=== PATIENT | female | born 2000 | race Caucasian/White ===

== ENCOUNTER 2020-09-20 17:16 | Emergency (ER) | payer BC, SELFPAY ==
[2020-09-20 17:19] VITALS: BP 132/89; PULSE 72; RESP 18; TEMP 37; O2SAT 100
[2020-09-20 17:22] VITALS: BP 132/89; PULSE 72; RESP 16; O2SAT 100
--- NOTE | 2020-09-20 17:22 | PC.NURSE ---
AT BEDSIDE UPON ARRIVAL INTO ed.
--- NOTE | 2020-09-20 17:23 | PC.NURSE ---
ER MD cancelled trauma alert
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
[2020-09-20 17:30] VITALS: BP 135/89; PULSE 72; RESP 16; O2SAT 100
--- NOTE | 2020-09-20 17:40 | PC.NURSE ---
c-collar in place
--- NOTE | 2020-09-20 17:40 | PC.NURSE ---
rad aware of Ct orders
[2020-09-20 17:43] LABS: Basophils # 0.1 K/mm3 (0-0.2); Basophils % 0.9 % (0.1-2.0); Eosinophils # 0.3 K/mm3 (0.0-0.4); Eosinophils % 4.6 % (0.1-12.0); Hematocrit 38.1 % (37.0-47.0); Lymphocytes # 1.8 K/mm3 (0.7-4.5); Lymphocytes % 32.1 % (10-50); Mean Corpuscular Hemoglobin 28.5 pg (27.0-31.2); Mean Corpuscular Volume 83.8 fl (81-99); Mean Platelet Volume 7.7 fl (7.4-10.4); Monocytes # 0.3 K/mm3 (0.1-1.0); Monocytes % 5.8 % (1.7-9.3); Neutrophils # 3.1 K/mm3 (1.8-7.8); Neutrophils % 56.6 % (37.0-80.0); Platelet Count 212 K/mm3 (142-424); Red Blood Count 4.55 M/mm3 (4.20-5.40); Red Cell Distribution Width 13.2 % (11.5-17.5); White Blood Count 5.5 K/mm3 (4.8-10.8)
[2020-09-20 17:50] LABS: Chloride 108 mmol/L (98-107); Sodium 138 mmol/L (136-145)
[2020-09-20 17:52] LABS: Alanine Aminotransferase 15 U/L (12-78); Aspartate Amino Transferase 26 U/L (14-36); Blood Urea Nitrogen 12 mg/dl (7-17); Creatinine Clearance Estimated 112 mL/min (50-200); Estimated Glomerular Filt Rate 91 ml/min (>60); GFR (African American) 110 ML/MIN (>60)
[2020-09-20 17:53] LABS: Albumin Level 4.4 g/dl (3.5-5.0); Albumin/Globulin Ratio 1.8 (1.1-1.8); Alkaline Phosphatase 49 U/L (38-126); Bilirubin,Total 0.5 mg/dl (0.2-1.3); Calcium 8.8 mg/dl (8.4-10.2); Carbon Dioxide 24 mmol/L (22.0-30.0); Globulin 2.5 g/dL (1.3-3.2); Glucose 98 mg/dl (74-100); Total Protein,Serum 6.9 g/dl (6.3-8.2)
[2020-09-20 17:56] LABS: Activated Partial Thrombo Time 24.1 seconds (22.8-30.6); INR 1.06 (0.9-1.1); Prothrombin Time 12.4 seconds (10.1-12.5)
[2020-09-20 18:10] VITALS: BP 119/87; PULSE 65; O2SAT 100
[2020-09-20 18:11] VITALS: BP 114/85; PULSE 63; O2SAT 100
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
--- NOTE | 2020-09-20 18:45 | PC.NURSE ---
CALLING [facility] AT THIS TIME.
--- NOTE | 2020-09-20 19:12 | PC.NURSE ---
Report called to [facility] ED charge at ED at this time.
[2020-09-20 19:16] VITALS: BP 106/79; PULSE 66; RESP 16; TEMP 36.7; O2SAT 98
== END 2020-09-20 19:16 | disposition short-term general hospital (02) ==
PROVIDERS: Emergency Provider Emergency Medicine; PCP Family Medicine
DX: S01.312A Laceration without foreign body of left ear, initial encounter (principal); S00.432A Contusion of left ear, initial encounter; W55.22XA Struck by cow, initial encounter; Y92.73 Farm field as the place of occurrence of the external cause
CPT/HCPCS: 70450; 72125; 80053; 85025; 85610; 85730; 99282

== ENCOUNTER → 2021-09-06 14:46 | Outpatient (CLI) | payer OTHER, SELFPAY ==
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
== END ==
PROVIDERS: PCP Family Medicine; Visit Provider Family Medicine
DX: R07.9 Chest pain, unspecified (principal); V89.2XXA Person injured in unspecified motor-vehicle accident, traffic, initial encounter
CPT/HCPCS: 71046